=== PATIENT | female | born 1945 | race Caucasian/White ===

== ENCOUNTER 2022-06-06 13:19 | Outpatient (CLI) | payer MEDICARE, SELFPAY ==
--- NOTE | 2022-06-06 13:40 | CRLHL7_ITS ---
For Patients: As a result of the Century Cures Act, medical imaging exams and procedure reports are released immediately into your electronic medical record. You may view this report before your referring provider. If you have questions, please contact your health care provider. BILATERAL MAMMOGRAM WITH COMPUTER-AIDED DETECTION AND TOMOSYNTHESIS TECHNIQUE: CC and MLO views were obtained. These mammographic images have been obtained using full-field digital technique. These mammographic images were interpreted with the benefit of computer-aided detection. Breast tomosynthesis was used in this interpretation. COMPARISON FILM: 04/28/20, 02/25/18, 01/17/16. FINDINGS: The breasts are heterogeneously dense, which may obscure small masses. IMPRESSION: There is no radiographic evidence for malignancy. ASSESSMENT: BI-RADS Category 1: Negative RECOMMENDATION: Routine screening mammogram in 1 year. A lay language report of this examination will be provided to the patient. Star Napoles M.D. Diagnostic/Musculoskeletal Radiologist [email or web address] Transcribed: 9:[address]/Dictated by: Star Napoles MD @ 06/07/2022 9:14:00 AM (Electronically Signed)
== END 2022-06-06 13:20 | disposition home or self-care (01) ==
LOC: MAMMO 13:21
PROVIDERS: PCP Family Medicine; Visit Provider Family Medicine
DX: Z12.31 Encounter for screening mammogram for malignant neoplasm of breast (principal); R92.2 Inconclusive mammogram
CPT/HCPCS: 77063; 77067

== ENCOUNTER 2022-08-03 13:53 | Outpatient (CLI) | payer MEDICARE, SELFPAY | END 2022-08-03 13:54 | disposition home or self-care (01) | PROVIDERS: PCP Family Medicine; Visit Provider Family Medicine | DX: I35.0 Nonrheumatic aortic (valve) stenosis (principal) | CPT/HCPCS: 93306 ==

== ENCOUNTER 2022-08-23 10:45 | Outpatient (RCR) | payer MEDICARE, SELFPAY | END 2022-12-20 10:11 | disposition home or self-care (01) | PROVIDERS: PCP Family Medicine; Visit Provider Family Medicine | DX: M54.2 Cervicalgia (principal); Z51.89 Encounter for other specified aftercare | CPT/HCPCS: 97035; 97140 ==

== ENCOUNTER 2023-06-07 09:53 | Outpatient (CLI) | payer MEDICARE, SELFPAY ==
--- NOTE | 2023-06-07 10:15 | CRLHL7_ITS ---
For Patients: As a result of the Cures Act, medical imaging exams and procedure reports are released immediately into your electronic medical record. You may view this report before your referring provider. If you have questions, please contact your health care provider. BILATERAL SCREENING MAMMOGRAM WITH COMPUTER-AIDED DETECTION AND TOMOSYNTHESIS TECHNIQUE: CC and MLO views were obtained. These mammographic images have been obtained using full-field digital technique. These mammographic images were interpreted with the benefit of computer-aided detection. Breast Tomosynthesis was used in this interpretation. COMPARISON FILM: 06/06/22, 05/02/21, 04/28/20. FINDINGS: There are scattered areas of fibroglandular density IMPRESSION: There is no radiographic evidence for malignancy. ASSESSMENT: BI-RADS Category 2: Benign RECOMMENDATION: Routine screening mammogram in 1 year. A lay language report of this examination will be provided to the patient. Kashif Brennan M.D. Diagnostic Radiologist [email or web address] Transcribed: 2:09 [email or web address]/Dictated by: Kashif Brennan MD @ 06/07/2023 11:48:00 AM (Electronically Signed)
== END 2023-06-07 09:54 | disposition home or self-care (01) ==
LOC: MAMMO 09:54
PROVIDERS: PCP Family Medicine; Visit Provider Family Medicine
DX: Z12.31 Encounter for screening mammogram for malignant neoplasm of breast (principal)
CPT/HCPCS: 77063; 77067

== ENCOUNTER 2023-06-12 08:05 | Outpatient (CLI) | payer MEDICARE, SELFPAY | END 2023-06-12 08:06 | disposition home or self-care (01) | LOC: NFLDREF 06-13 02:58 | PROVIDERS: PCP Family Medicine; Referring Provider Family Medicine; Visit Provider Family Medicine | DX: E78.00 Pure hypercholesterolemia, unspecified (principal); I10 Essential (primary) hypertension | CPT/HCPCS: 80053; 80061 ==

== ENCOUNTER 2024-06-09 11:11 | Outpatient (CLI) | payer MEDICARE, SELFPAY ==
--- NOTE | 2024-06-09 11:30 | CRLHL7_ITS ---
For Patients: As a result of the Century Cures Act, medical imaging exams and procedure reports are released immediately into your electronic medical record. You may view this report before your referring provider. If you have questions, please contact your health care provider. BILATERAL SCREENING MAMMOGRAM WITH COMPUTER-AIDED DETECTION AND TOMOSYNTHESIS TECHNIQUE: CC and MLO views were obtained. These mammographic images have been obtained using full-field digital technique. These mammographic images were interpreted with the benefit of computer-aided detection. Breast Tomosynthesis was used in this interpretation. COMPARISON FILM: 06/07/23, 06/06/22, 05/02/21. FINDINGS: There are scattered areas of fibroglandular density. IMPRESSION: There is no radiographic evidence for malignancy. ASSESSMENT: BI-RADS Category 2: Benign RECOMMENDATION: Routine screening mammogram in 1 year. A lay language report of this examination will be provided to the patient. Kashif Brennan M.D. Diagnostic Radiologist [email or web address] SP/Dictated by: Kashif Brennan MD @ 06/09/2024 12:10:00 PM (Electronically Signed)
== END 2024-06-09 11:12 | disposition home or self-care (01) ==
PROVIDERS: PCP Family Medicine; Visit Provider Family Medicine
DX: Z12.31 Encounter for screening mammogram for malignant neoplasm of breast (principal)
CPT/HCPCS: 77063; 77067

== ENCOUNTER 2024-06-20 08:04 | Outpatient (CLI) | payer MEDICARE, SELFPAY | END 2024-06-20 08:05 | disposition home or self-care (01) | LOC: NFLDREF 06-24 15:27 | PROVIDERS: PCP Family Medicine; Referring Provider Family Medicine; Visit Provider Family Medicine | DX: R73.03 Prediabetes (principal); E78.2 Mixed hyperlipidemia; I10 Essential (primary) hypertension | CPT/HCPCS: 80053; 80061 ==

== ENCOUNTER 2024-08-21 13:41 | Outpatient (CLI) | payer MEDICARE, SELFPAY ==
--- NOTE | 2024-08-21 15:30 | CRLHL7_ITS ---
For Patients: As a result of the Century Cures Act, medical imaging exams and procedure reports are released immediately into your electronic medical record. You may view this report before your referring provider. If you have questions, please contact your health care provider. DXA BONE MINERAL DENSITY STUDY Current height (in): 64.5. Weight (lb): 174.0. Menopause age: 35. Ethnicity: White. 1. Have you had a previous hip or vertebral fracture? No. 2. Have you had any fractures during your adult life which did not result from significant trauma (e.g., auto accident)? No. 3. Did either of your parents have a hip fracture? No. 4. Do you smoke? No. 5. Have you ever taken Glucocorticoids? Yes. 6. Do you have rheumatoid arthritis? No. 7. Do you have secondary osteoporosis? No. 8. Do you drink 3 or more alcoholic drinks per day? No. 9. Are you being treated for osteoporosis? No. 10. Have you ever taken any of the following medications: Actonel, Evista, Fosamax, Miacalcin, Reclast, Boniva, Forteo, HRT (i.e. estrogen/hormone therapy), Protelos, Prolia, Vitamin D, Calcium, other ??? please specify. ANSWER: Yes, Vitamin D. 11. Do you have any of the following medical conditions: Anorexia or bulimia, asthma or emphysema, end stage renal disease, hyperparathyroidism, any seizure disorders, cancer, inflammatory bowel diseases, hysterectomy, other ??? please specify. ANSWER: Yes, COPD, Hysterectomy. 12. What was your maximum height (inches)? 67. 13. Do you perform weight bearing exercise regularly? No. 14. Do you regularly consume dairy products? No. 15. Do you drink caffeinated beverages? Yes. If female: 16. At what age did your period start? 14. 17. Are you premenopausal? No. 18. How many full term pregnancies have you had? 2. 19. Have you ever missed your period for more than 6 months in a row (not including or menopause)? No. TECHNIQUE: Bone mineral density study was performed using the [employer]. FINDINGS: The results of the study expressed as bone mineral density (BMD) are as follows: Lumbar spine L1 to L4: BMD: 1.098 g/cm2. T-score: 0.5. Z-score: 3.1. Neck Left: BMD:0.795 g/cm2. T-score: -0.5 . Z-score: 1.8. Right: BMD: 0.775 g/cm2. T-score: -0.7 . Z-score: 1.6. Total Left: BMD: 0.798 g/cm2. T-score: -1.2 . Z-score: 0.8. Right: BMD: 0.836 g/cm2. T-score: -0.9 . Z-score: 1.2. IMPRESSION: Osteopenia. *Comparison exams done prior to 04/2020 were performed on different unit, [employer]. COMPARISON: Compared with scan of 05/04/2022, the bone mineral density has decreased by -2.4 percent at the spine and decreased by 5.4 percent at the hip. Compared with scan of 05/20/2020, the bone mineral density has decreased by 2.7 percent at the spine and increased by 4.7 percent at the hip. Kashif Brennan M.D. Diagnostic Radiologist [email or web address] JR/Dictated by: Kashif Brennan MD @ 08/22/2024 10:11:00 AM (Electronically Signed)
== END 2024-08-21 13:42 | disposition home or self-care (01) ==
LOC: RAD 13:42
PROVIDERS: PCP Family Medicine; Visit Provider Family Medicine
DX: M85.80 Other specified disorders of bone density and structure, unspecified site (principal); I35.1 Nonrheumatic aortic (valve) insufficiency; I34.0 Nonrheumatic mitral (valve) insufficiency; M85.89 Other specified disorders of bone density and structure, multiple sites
CPT/HCPCS: 77080; 93306

== ENCOUNTER 2025-08-06 11:50 | Outpatient (CLI) | payer MEDICARE, SELFPAY | END 2025-08-06 11:51 | disposition home or self-care (01) | LOC: NFLDREF 08-10 04:47 | PROVIDERS: PCP Family Medicine; Referring Provider Family Medicine; Visit Provider Family Medicine | DX: Z00.00 Encounter for general adult medical examination without abnormal findings (principal); I10 Essential (primary) hypertension; E78.00 Pure hypercholesterolemia, unspecified | CPT/HCPCS: 80053; 80061; 82043; 82570 ==

== ENCOUNTER 2025-08-19 12:52 | Outpatient (CLI) | payer MEDICARE, SELFPAY | END 2025-08-19 12:53 | disposition home or self-care (01) | LOC: RAD 12:54 | PROVIDERS: PCP Family Medicine; Visit Provider Family Medicine | DX: I35.0 Nonrheumatic aortic (valve) stenosis (principal); I07.1 Rheumatic tricuspid insufficiency | CPT/HCPCS: 93306 ==

== ENCOUNTER 2025-08-20 12:14 | Outpatient (CLI) | payer MEDICARE, SELFPAY | END 2025-08-20 12:15 | disposition home or self-care (01) | LOC: NFLDREF 08-24 11:08 | PROVIDERS: PCP Family Medicine; Referring Provider Family Medicine | DX: Z71.1 Person with feared health complaint in whom no diagnosis is made (principal) | CPT/HCPCS: 87086 ==

== ENCOUNTER 2025-09-28 12:35 | Outpatient (CLI) | payer MEDICARE, SELFPAY | END 2025-09-28 12:36 | disposition home or self-care (01) | LOC: NFLDREF 10-02 10:00 | PROVIDERS: PCP Family Medicine; Referring Provider Family Medicine | DX: N39.0 Urinary tract infection, site not specified (principal) | CPT/HCPCS: 87086 ==